=== PATIENT | male | born 1955 | race Caucasian/White ===

== ENCOUNTER → 2016-08-15 | Outpatient (CLI) | payer OTHER ==
[~2016-08-15] MED LIST: ALLER-TEC10 M1 PO; ANEXSIA 7.5/3251 TA1 PO; ASPIRIN PO; ASPIRIN81 M2 PO; ASTELIN137 MCG INH; ATENOLOL PO; AVANDAMET 2 MG/1 TA1 PO; CLARITIN10 M2 PO; DIOVAN HCT 80/11 TAB PO; DOXYCYCLINE PO; FAMOTIDINE PO; FISH OIL 1,0001 CAP PO; FISH OIL500 MG PO; FLONASE 0.05% N16 GM INH; HYZAAR 50-12.51 TA1 PO; JANUVIA50 MG PO; LANTUS SOLOSTAR3 ML SQ; LANTUS100 U/ML SUBQ; LASIX PO; LOSARTAN-HCTZ1 EACH PO; METFORMIN HCL1000 M1 PO; METFORMIN HCL500 M1 PO; MONTELUKAST SOD10 MG PO; MUCINEX DM1 TAB.SR . PO; MYCOLOG II CREA15 GM TOP; PREDNISONE PO; SIMVASTATIN20 MG PO; ZESTORETIC 20/21 TAB PO; ZOCOR20 MG PO; [UNRECOGNIZED DRUG - OTHER] TP
--- NOTE | ~2016-08-15 | US6 ---
[facility] A Service of [facility] & [facility] / [facility] RADIOLOGY TEXT RESULTS PATIENT: GABRIEL JOHNSON LOCATION: [facility] : 57 UNIT #: [id number] AGE: [address]: Daiana Alcazar MD SEX: M ORDER DR: [id number] [facility] [address] [place], [place] [address] [id number] O MR#: [id number] #: [id number] NAME: GABRIEL JOHNSON. : 1955 SEX: M STUDY DATE/TIME: 08/15/2016 9:22 UNIT: [facility] ROOM: STUDY DESCRIPTION: US Abdominal Limited Attending Physician: Daiana Alcazar M.D. Referring Physician: Daiana Alcazar M.D. Ordering Physician: Daiana Alcazar M.D. Primary Care Physician: Rubina Mann M.D. MEDICAL IMAGING REPORT This report is preliminary unless electronic signature is present EXAM Right upper quadrant ultrasound 08/15/2016 HISTORY Abnormally elevated liver enzymes at doctor's appointment 3 weeks ago. Hypertension and diabetes. FINDINGS The liver demonstrates an increase in echotexture with attenuation of the ultrasound beam characteristic of fatty infiltration. No cystic or solid mass lesions were seen in the liver. The intra and extrahepatic bile ducts are not dilated. The gallbladder is normal with no evidence of cholelithiasis, wall thickening or pericholecystic fluid. The common duct measures 5 mm. The pancreas and right kidney are normal. IMPRESSION Fatty infiltration of the liver. Otherwise, negative right upper quadrant ultrasound. Dictated by... Roly Naranjo M.D. THIS IS AN ELECTRONICALLY VERIFIED REPORT Roly Naranjo M.D. at 08/16/2016 8:05 AM KRT/to TD: 08/15/2016 18:30 JOB #: [id number] MEDICAL IMAGING REPORT Page 1 of 1 COPY
== END | disposition home or self-care (01) ==
LOC: CGUS 08:55
DX: R74.8 Abnormal levels of other serum enzymes (principal); K76.0 Fatty (change of) liver, not elsewhere classified
CPT/HCPCS: 76705